=== PATIENT | male | born 1990 | race Caucasian/White ===

== ENCOUNTER 2024-10-28 06:40 | Emergency (ER) | payer SELFPAY ==
[2024-10-28 06:45] VITALS: BP 119/82; PULSE 66; TEMP 36.6; O2SAT 97; BMI 22.4
--- NOTE | 2024-10-28 07:23 | CT_ITS ---
The [address] [address] Patient Name: CHHAYA NEWMAN MRN: [id number] date: 1990 Sex: M Assigned Patient Location: ED.MAIN Current Patient Location: ED.MAIN Accession/Order Number: [id number] Exam Date: 10/28/2024 08:20 Report Date: 10/28/2024 08:29 At the request of: MARY KANG MD Procedure: CT soft tissue neck w con CT soft tissue neck w con 10/28/2024 7:55 AM SIGNS AND SYMPTOMS: ^Pain, left-sided fullness on exam CONTRAST: 100 mL of intravenous Omnipaque 300 TECHNIQUE: Multidetector CT axial slices of the soft tissues of the neck were obtained with IV contrast. Sagittal and coronal reformats were reconstructed. CT was performed with one or more of the following dose reduction techniques: Automated exposure control, adjustment of the mA and/or kV according to patient size, or use of iterative reconstruction technique. COMPARISON: None FINDINGS: Soft tissues of the orbits are within normal limits. The soft tissues of the infratemporal fossa fossa structures show no acute abnormality. Mucosal surfaces of the nasopharynx, hypopharynx, and subglottic airways are grossly unremarkable. Along the left tonsillar pillar there is a peripherally enhancing 2.0 x 1.5 x 3.5 cm internally septated abscess. There are prominent left level 2 and level 3 lymph nodes which are presumably reactive in nature. At the base of the tongue extending into the vallecula is a 2.0 x 1.8 cm soft tissue attenuating structure centered in the midline. This may represent a complex laryngeal cyst or thyroglossal duct cyst. An underlying mass is not excluded. Direct visualization is recommended. The parotid glands, submandibular, and the thyroid gland are within normal limits. The carotid and jugular circulations are within normal limits. The visualized lung parenchyma shows no acute pathology. No acute bony abnormalities are appreciated. The skull base, craniocervical junction, atlantoaxial joints are within normal limits. The paranasal sinuses are within normal limits. CT/CT soft tissue neck w con IMPRESSION: Along the left tonsillar pillar there is a peripherally enhancing 2.0 x 1.5 x 3.5 cm internally septated abscess. There are prominent left level 2 and level 3 lymph nodes which are presumably reactive in nature. At the base of the tongue extending into the vallecula is a 2.0 x 1.8 cm soft tissue attenuating structure centered in the midline. This may represent a complex laryngeal cyst or thyroglossal duct cyst. An underlying mass is not excluded. Direct visualization is recommended. Impression dictated by: Will Levi M.D. 10/28/2024 8:29 AM Dictation Location: [place] [address] Electronically authenticated by: [id number] Y Date: 10/28/2024 08:29
--- NOTE | 2024-10-28 07:24 | ED_ITS ---
HPI HPI - General Adult General Chief complaint: Upper Respiratory Infection Stated complaint: SORE THROAT Time Seen by Provider: 10/28/24 07:09 Source: patient Mode of arrival: walk-in Limitations: no limitations History of Present Illness HPI narrative: 33-year-old male presents for sore throat. He has had it for 4 days and he was seen at an urgent care center who put him on amoxicillin without doing a swab. He was seen in an emergency department yesterday and they took him off of the amoxicillin and gave him Magic mouthwash. It is not getting any better. Hurts when he swallows and he is having trouble eating. Related Data Home Medications ?Medication ?Instructions ?Recorded ?Confirmed No Known Home Medications 10/28/2405/23 Allergies Allergy/AdvReac Type Severity Reaction Status Date / Time No Known Drug Allergies Allergy Verified 10/28/24 06:52 Opioid HPI Opioid Management Most Recent Opioid Data: Last Pain Scale 6 Today, 06:45 Review of Systems ROS Narrative A ten point review of systems is negative except as noted above. Exam Narrative Exam Narrative: Nurses note and vital signs reviewed and patient is not hypoxic. General: The patient appears in no apparent distress. Patient is resting on cart. Skin: Warm, dry, no pallor noted. There is no rash noted. Head: Normocephalic, atraumatic Eye: Normal conjunctiva, no drainage Ears, Nose, Mouth, and Throat: oral mucosa is moist. Nares patent. He has fullness on the left oropharyngeal area. No bleeding or pus. Cardiovascular: Regular Rate and Rhythm Respiratory: Patient is in no distress, no accessory muscle use, lungs are clear to auscultation, no wheezing, rales or rhonchi Back: non-tender GI: Soft and nontender Musculoskeletal: The patient has no evidence of calf tenderness, no pitting edema, symmetrical pulses noted bilaterally Neurological: A&O normal speech Psychiatric: Cooperative, appears mildly anxious Constitutional Vital Signs, click to edit/add: Last Vital Signs Temp 97.8 F 10/28/24 06:45 Pulse 66 10/28/24 06:45 Resp 20 10/28/24 06:45 BP 119/82 10/28/24 06:45 Pulse Ox 97 10/28/24 06:45 O2 Del Method Room Air 10/28/24 06:45 Course Vital Signs Vital signs: Vital Signs Temperature 97.8 F 10/28/24 06:45 Pulse Rate 66 10/28/24 06:45 Respiratory Rate 20 10/28/24 06:45 Blood Pressure 119/82 10/28/24 06:45 Pulse Oximetry 97 10/28/24 06:45 Oxygen Delivery Method Room Air 10/28/24 06:45 Temperature 97.8 F 10/28/24 06:45 Pulse Rate 66 10/28/24 06:45 Respiratory Rate 20 10/28/24 06:45 Blood Pressure 119/82 10/28/24 06:45 Pulse Oximetry 97 10/28/24 06:45 Oxygen Delivery Method Room Air 10/28/24 06:45 Medical Decision Making MDM Narrative Medical decision making narrative: The patient was found to have a peritonsillar abscess. He was given IV Unasyn and Decadron was ordered. I spoke to Dr. Munroe and we have agreed that the patient would need to be transferred. I spoke to [facility] and they report that they do not have an ENT physician on-call. Call was placed for [facility]. At this point the patient was seen to leave the emergency department and get into his truck and drive off. He did not inform staff and has left AGAINST MEDICAL ADVICE. He had been informed of the serious nature of his condition including the possible need for drainage and definite need for IV antibiotics. He is fully able to make medical decisions for himself. Differential Diagnosis Differential Diagnosis: Strep throat, mono, peritonsillar abscess, retropharyngeal abscess Lab Data Lab results reviewed: Yes I reviewed the patient's lab results Labs: Lab Results 10/28/24 10/28/24 Range/Units 07:22 07:28 WBC 10.6 (4.0-11.0) 10^3/uL RBC 4.96 (4.70-6.10) 10^6/uL Hgb 15.4 (14.0-18.0) g/dL Hct 45.2 (42.0-54.0) % MCV 91.1 (80.0-94.0) fL MCH 31.0 (25.9-34.0) pg MCHC 34.1 (29.9-35.2) g/dL RDW 12.5 (11.0-15.0) % Plt Count 335 (150-450) 10^3/uL MPV 8.6 L (9.5-13.5) fL Neut % (Auto) 69.4 (43.0-75.0) % Lymph % (Auto) 20.4 L (20.5-60.0) % Cascade % (Auto) 8.9 (1.7-12.0) % Eos % (Auto) 0.6 L (0.9-7.0) % Baso % (Auto) 0.3 (0.2-2.0) % Neut # (Auto) 7.3 H (1.4-6.5) 10^3/uL Lymph # (Auto) 2.2 (1.2-3.8) 10^3/uL Cascade # (Auto) 0.9 H (0.3-0.8) 10^3/uL Eos # (Auto) 0.1 (0.0-0.7) 10^3/uL Baso # (Auto) 0.0 (0.0-0.1) 10^3/uL Abs Immat Gran (auto) 0.04 H (0.00-0.03) 10^3/uL Imm/Tot Granulo (auto) 0.4 (0.0-0.5) % Sodium 141 (136-145) mmol/L Potassium 4.4 (3.5-5.1) mmol/L Chloride 105 (98-107) mmol/L Carbon Dioxide 25.8 (21.0-32.0) mmol/L Anion Gap 14.6 BUN 12.0 (7.0-18.0) mg/dL Creatinine 0.64 L (0.70-1.30) mg/dL Est GFR ( Amer) >60 (>=60 mL/min/1.73m^2) Est GFR (Non-Af Amer) >60 (>=60 mL/min/1.73m^2) BUN/Creatinine Ratio 18.8 Glucose 101 (74-106) mg/dL Calcium 9.3 (8.5-10.1) mg/dL Monoscreen Negative (NEGATIVE) Streptococcus Screen Negative Imaging Data CT neck: Radiologist's impression: ITS Impressions Soft Tissue Neck CT 10/28/24 07:23 IMPRESSION: Along the left tonsillar pillar there is a peripherally enhancing 2.0 x 1.5 x 3.5 cm internally septated abscess. There are prominent left level 2 and level 3 lymph nodes which are presumably reactive in nature. At the base of the tongue extending into the vallecula is a 2.0 x 1.8 cm soft tissue attenuating structure centered in the midline. This may represent a complex laryngeal cyst or thyroglossal duct cyst. An underlying mass is not excluded. Direct visualization is recommended. Impression dictated by: Will Levi M.D. 10/28/2024 8:29 AM Dictation Location: [facility] Electronically authenticated by: [id number] Y Date: 10/28/2024 08:29 Discharge Plan Discharge Stand Alone Forms: Portal Instructions Chief Complaint: Upper Respiratory Infection Clinical Impression: Abscess, peritonsillar, Left against medical advice Patient Disposition: Left Against Medical Advice Time of Disposition Decision: 09:43 Mode of Transportation: Private Vehicle Prescriptions / Home Meds: No Action No Known Home Medications Print Language: Congolese Instructions: Peritonsillar Abscess (ED), Against Medical Advice (ED) Referrals: Physician,Non-Staff, MD [Primary Care Provider] - 1 week
[2024-10-28 07:34] LABS: Hematocrit 45.2 % (42.0-54.0); Hemoglobin 15.4 g/dL (14.0-18.0); Immature Granulocytes Abs Auto 0.04 10^3/uL (0.00-0.03); Immature Granulocytes Pct Auto 0.4 % (0.0-0.5); Lymphocytes Absolute Auto 2.2 10^3/uL (1.2-3.8); Mean Corpuscular HGB Conc 34.1 g/dL (29.9-35.2); Mean Corpuscular Hemoglobin 31.0 pg (25.9-34.0); Mean Corpuscular Volume 91.1 fL (80.0-94.0); Platelet Count 335 10^3/uL (150-450); Red Blood Count 4.96 10^6/uL (4.70-6.10); White Blood Count 10.6 10^3/uL (4.0-11.0)
[2024-10-28 07:45] LABS: Anion Gap 14.6; Blood Urea Nitrogen 12.0 mg/dL (7.0-18.0); Calcium 9.3 mg/dL (8.5-10.1); Carbon Dioxide 25.8 mmol/L (21.0-32.0); Chloride 105 mmol/L (98-107); Estimated GFR (African America >60 (>=60 mL/min/1.73m^2); Estimated GFR (Non-African Ame >60 (>=60 mL/min/1.73m^2); Glucose 101 mg/dL (74-106); Potassium 4.4 mmol/L (3.5-5.1); Sodium 141 mmol/L (136-145)
[2024-10-28] MEDS: AMPICILLIN SODIUM/SULBACTAM NA 3 GM in 0.9 % SODIUM CHLORIDE 100 ML IV (08:17)
[2024-10-28 08:44] LABS: Mono Screen NEGATIVE (NEGATIVE)
--- NOTE | 2024-10-28 09:42 | PC.NURSE ---
Pt ran out the doors of ED and drove off in his truck. pt does still have an IV in arm at this time -- informed Dr Butt
--- NOTE | 2024-10-28 09:56 | PC.NURSE ---
Pt eloped from ER around 0940. Pt left with 20g IV in place in left AC. Brake Operator [employer] attempted call pt and pt refused to give phone number on face sheet. 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
== END 2024-10-28 09:40 | disposition left against medical advice (07) ==
PROVIDERS: Emergency Provider Emergency Medicine
DX: J36 Peritonsillar abscess (principal); Z53.29 Procedure and treatment not carried out because of patient's decision for other reasons
CPT/HCPCS: 36415; 70491; 80048; 85025; 86308; 87040; 87070; 87880; 96365; 99284; J0295; Q9967